=== PATIENT | female | born 1990 | race Caucasian/White ===

== ENCOUNTER 2016-09-15 17:26 | Emergency (ER) | payer OTHER ==
[~2016-09-15 17:26] MED LIST: AUGMENTIN 875-1 EAC2 PO; BENADRYL ALLERG25 M1 PO; CEFDINIR300 M1 PO; DIFLUCAN100 M1 PO; IBUPROFEN800 M1 PO; IMODIUM A-D2 M3 PO; MEDROL4 M1 PO; NYSTATIN100000 UNI SSW; PREDNISONE20 M1 PO; PRENATAL 19 TA1 EACH PO; PRILOSEC OTC20 M1 PO; PROBIOTIC1 EA10; PROZAC20 M3 PO; VENTOLIN HFA18 G2 PO; XANAX0.5 M1 PO
[2016-09-15] MEDS ORDERED: ATIVAN0.5 M1 PO (18:52)
[2016-09-15 19:48] LABS: BASO % 0.2 % (0-2); EOS % 0.4 % (0-7); HCT-HEMATOCRIT 37.6 % (34.0-49.0); HGB-HEMOGLOBIN 12.4 gm/dl (12.0-15.5); IMMATURE GRANULOCYTES ABSOLUTE 0.01 tho/cmm (0-0.03); IMMATURE GRANULOCYTES PERCENT 0.2 % (0-0.3); LYMPH % 19.9 % (20-45); LYMPH ABSOLUTE COUNT 1.1 tho/cmm (0.8-4.5); MCH (MEAN CORPUSCULAR HGB) 26.7 pg (28.0-32.0); MEAN PLATELET VOLUME 9.1 cmc (9.4-12.4); MONO % 6.2 % (0-12); MONOCYTE ABSOLUTE COUNT 0.4 tho/cmm (0.0-1.2); NEUTROPHIL ABSOLUTE COUNT 4.2 tho/cmm (1.6-8.0); NEUTROPHIL-AUTOMATED 4.2 tho/cmm (1.6-8.0); NEUTROPHILS % 73.1 % (40-80); PLATELET COUNT 209 tho/cmm (150-450); RED BLOOD COUNT 4.64 mil/cmm (4.00-5.20); RED CELL DISTRIBUTION WIDTH 14.7 % (12.4-16.4); WHITE BLOOD COUNT 5.7 tho/cmm (4.0-10.0)
[2016-09-15 20:08] LABS: ALB/GLOB RATIO 1.3 (0.8-2.0); ALBUMIN 3.9 g/dl (3.5-5.0); ALKALINE PHOSPHATASE 56 U/L (33-138); ALT/SGPT 14 U/L (12-78); ANION GAP 12 mmol/L (0-20); AST/SGOT 11 U/L (10-40); BILIRUBIN,TOTAL 0.7 mg/dl (0-1.5); BLOOD UREA NITROGEN 6 mg/dl (6-24); CALCIUM 8.6 mg/dl (8.5-10.5); CARBON DIOXIDE-VENOUS 26 mmol/L (22-32); CHLORIDE 105 mmol/l (96-110); CREATININE 0.62 mg/dl (0.50-1.10); GLUCOSE 84 mg/dL (70-110); LIPASE 98 U/L (73-393); POTASSIUM 3.4 mmol/L (3.7-5.1); SODIUM 140 mmol/L (135-145); eGFR VALUE FOR BLACK >90 mL/Min
[2016-09-15 20:24] LABS: URINE BILIRUBIN NEGATIVE (NEG); URINE BLOOD NEGATIVE (NEG); URINE GLUCOSE (UA) NEGATIVE (NEG); URINE KETONE MODERATE (NEG); URINE LEUKOCYTE ESTERASE NEGATIVE (NEG); URINE NITRITE NEGATIVE (NEG); URINE PROTEIN NEGATIVE (NEG); URINE SPECIFIC GRAVITY 1.005 (1.003-1.030)
[2016-09-15 20:25] LABS: URINE APPEARANCE CLEAR; URINE COLOR YELLOW
== END 2016-09-15 21:17 ==
LOC: EDMED 17:26
PROVIDERS: Emergency Medicine
DX: K21.9 Gastro-esophageal reflux disease without esophagitis (principal); R07.89 Other chest pain; R19.7 Diarrhea, unspecified; E78.5 Hyperlipidemia, unspecified

== ENCOUNTER 2016-10-01 07:39 | Emergency (ER) | payer OTHER ==
[~2016-10-01 07:39] MED LIST changes: +ATIVAN0.5 M1 PO
[2016-10-01] MEDS ORDERED: DIFLUCAN100 M1 PO (07:49)
[2016-10-01 08:20] LABS: BASO % 0.2 % (0-2); EOS % 0.9 % (0-7); HCT-HEMATOCRIT 39.6 % (34.0-49.0); HGB-HEMOGLOBIN 13.3 gm/dl (12.0-15.5); LYMPH % 22.8 % (20-45); MCHC MEAN CORPUSCULAR HGB CONC 33.6 % (32.0-36.0); MCV (MEAN CELL VOLUME) 80.3 fl (82.0-96.0); MEAN PLATELET VOLUME 9.6 cmc (9.4-12.4); MONO % 9.1 % (0-12); MONOCYTE ABSOLUTE COUNT 0.4 tho/cmm (0.0-1.2); NEUTROPHIL ABSOLUTE COUNT 2.9 tho/cmm (1.6-8.0); NEUTROPHIL-AUTOMATED 2.9 tho/cmm (1.6-8.0); PLATELET COUNT 207 tho/cmm (150-450); RED BLOOD COUNT 4.93 mil/cmm (4.00-5.20); RED CELL DISTRIBUTION WIDTH 14.5 % (12.4-16.4); WHITE BLOOD COUNT 4.4 tho/cmm (4.0-10.0)
[2016-10-01 08:54] LABS: BLOOD UREA NITROGEN 10 mg/dl (6-24); CALCIUM 9.2 mg/dl (8.5-10.5); CARBON DIOXIDE-VENOUS 25 mmol/L (22-32); CHLORIDE 108 mmol/l (96-110); CREATININE 0.85 mg/dl (0.50-1.10); GLUCOSE 90 mg/dL (70-110); SODIUM 141 mmol/L (135-145); eGFR VALUE FOR BLACK >90 mL/Min
[2016-10-01 08:56] LABS: ANION GAP 12 mmol/L (0-20); MAGNESIUM 2.3 mg/dl (1.3-2.6); POTASSIUM 3.9 mmol/L (3.7-5.1)
[2016-10-01 08:58] LABS: TSH-THYROID STIMULATING HORM. 0.83 uIU/ml (0.40-3.80)
== END 2016-10-01 09:55 ==
LOC: EDMED 07:39
PROVIDERS: Emergency Medicine
DX: R00.2 Palpitations (principal); F41.9 Anxiety disorder, unspecified; K21.9 Gastro-esophageal reflux disease without esophagitis; Z79.899 Other long term (current) drug therapy
CPT/HCPCS: J7030